=== PATIENT | female | born 1985 | race Caucasian/White ===

== ENCOUNTER 2016-08-04 12:56 | Emergency (ER) | payer BC ==
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
[2016-08-04] MEDS ORDERED: IBUPROFEN 800 MG TABLET. PO ONE (14:00)
--- NOTE | 2016-08-04 14:23 | RAD ---
Right wrist, 3 views, 08/04/2016: History: Fall, injury There is a tiny cortical fracture along the posterior margin of the distal radius as only seen on the lateral view. No other fracture or dislocation is identified. There is moderate subcutaneous edema about the wrist. There is mild subcutaneous edema IMPRESSION: Small cortical fracture along the posterior margin of the distal radius.
[2016-08-04] MEDS ORDERED: HYDR-971 PO (14:48)
[2016-08-04 15:14] VITALS: BP 135/86
== END 2016-08-04 15:15 | disposition home or self-care (01) ==
LOC: ER 12:56
DX: S62.101A Fracture of unspecified carpal bone, right wrist, initial encounter for closed fracture (principal); W03.XXXA Other fall on same level due to collision with another person, initial encounter; Y93.89 Activity, other specified; Y99.8 Other external cause status; Y92.89 Other specified places as the place of occurrence of the external cause
CPT/HCPCS: 29125; 73110; 99284-25